=== PATIENT | female | born 1995 | race Caucasian/White ===

== ENCOUNTER 2016-11-04 17:36 | Emergency (ER) | payer OTHER, MEDICAID ==
[2016-11-04 17:44] VITALS: BP 122/93; PULSE 108; RESP 20; TEMP 97.7; O2SAT 96
--- NOTE | 2016-11-04 18:12 | EDPHY ---
H & P Stated Complaint: bug bite? to l elbow/rash at [facility] detox from meth/heroin Time Seen by Provider: 11/04/16 17:57 HPI/ROS: Chief Complaint: Skin rash HPI: 21-year-old patient presenting from detox with a rash over her left elbow. She patient states that she has which she believes is a bug bite. There is some small surrounding erythema. She was sent in for evaluation for possible scabies. Does not have any rashes anywhere else. No fevers or chills. She has a history of IV heroin and meth abuse. States that she has not have any redness or lesions where she shoots in her antecubital regions. Does not have a history sugars abscesses. No fevers or chills. No nausea or vomiting. ROS: 10 point Review of Systems is negative except as noted in the HPI. PMH: Depression Social History: Positive smoking, positive alcohol, IV heroin and meth Family History: non-contributory Physical Exam: Gen: Awake, Alert, No Distress Ext: There is a small nodular region approximately 5 mm over her left olecranon. It is mildly tender to the touch. There is no fluctuance or pointing. There is some small surrounding erythema approximately 2 cm total. It is mildly warm to the touch. Is not tender. There is no lymphadenitis or streaking. She has no lymphadenopathy. Otherwise no skin lesions noted. Skin: Per left arm Neuro: CN II-XII intact, Sensation grossly intact, Strength 5/5 in bilateral upper and lower extremities - Personal History LMP (Females 10-55): Now Current Tetanus/Diphtheria Vaccine: Unsure - Medical/Surgical History Hx Asthma: No Hx Chronic Respiratory Disease: No Hx Diabetes: No Hx Cardiac Disease: No Hx Renal Disease: No Hx Cirrhosis: No Hx Alcoholism: No Hx HIV/AIDS: No Hx Splenectomy or Spleen Trauma: No Other PMH: heroin/meth addiction - Social History Smoking Status: Current every day smoker Constitutional: Initial Vital Signs Temperature (C) 36.5 C 11/04/16 17:40 Heart Rate 108 H 11/04/16 17:40 Respiratory Rate 20 11/04/16 17:40 Blood Pressure 122/93 H 11/04/16 17:40 O2 Sat (%) 96 11/04/16 17:40 O2 Delivery Mode Room Air Allergies/Adverse Reactions: No Known Allergies Allergy (Unverified 11/04/16 17:39) Home Medications: Medication Instructions Recorded Cephalexin [Keflex (*)] 500 mg PO Q6H #40 cap 11/04/16 GABAPENTIN 11/04/16 Nexplanon 11/04/16 Sulfamethox/Tmp 800/160 mg 1 tab PO BID #20 tab 11/04/16 [Bactrim Ds] Wellbutrin 100mg (*) 11/04/16 traZODone 11/04/16 Medical Decision Making ED Course/Re-evaluation: IV drug user with a possible early cellulitis. This is not where she has been treating there is no evidence of sugars abscess at this time. Will start her on Keflex and Bactrim, follow up with primary care in about a week for re- evaluation. Departure - Departure Disposition: Home, Routine, Self-Care Clinical Impression: Cellulitis, Insect bite Condition: Good Instructions: Cellulitis (ED), Insect Bite or Sting (ED) Additional Instructions: Return to the emergency department for increasing redness, pain, streaking up her arm, fevers, chills, or any other concerns. Follow up with primary care physician in 4-5 days for re-evaluation. Please take your full course of antibiotics. You are medically cleared for detox. Prescriptions: Cephalexin [Keflex (*)] 500 mg PO Q6H #40 cap Sulfamethox/Tmp 800/160 mg [Bactrim Ds] 1 tab PO BID #20 tab
== END 2016-11-04 18:37 | disposition home or self-care (01) ==
DX: S50.362A Insect bite (nonvenomous) of left elbow, initial encounter (principal); L03.114 Cellulitis of left upper limb; F17.200 Nicotine dependence, unspecified, uncomplicated; W57.XXXA Bitten or stung by nonvenomous insect and other nonvenomous arthropods, initial encounter; Y99.8 Other external cause status